=== PATIENT | male | born 1990 | race African-American/Black ===

== ENCOUNTER 2016-08-31 15:15 | Emergency (ER) | payer SELFPAY ==
[~2016-08-31 15:15] MED LIST: NO HOME MEDICATION XX; NORCO 5-325 TA1 EACH PO
[2016-08-31] MEDS ORDERED: KEFLEX500 M4 PO (17:13)
[2016-08-31] MEDS ORDERED: NORCO 5-325 TA1 EACH PO (17:13)
== END 2016-08-31 17:35 ==
LOC: EDMED 15:15
DX: S68.123A Partial traumatic metacarpophalangeal amputation of left middle finger, initial encounter (principal); Z23 Encounter for immunization; W27.0XXA Contact with workbench tool, initial encounter; Y93.89 Activity, other specified; Y92.89 Other specified places as the place of occurrence of the external cause; Y99.8 Other external cause status